=== PATIENT | female | born 1965 | race Caucasian/White ===

== ENCOUNTER 2019-04-27 21:22 | Inpatient (IN) | payer MEDICAID ==
[~2019-04-27] VITALS: Ht 167.6 cm; Wt 108.4 kg
[2019-04-27 21:26] VITALS: BP 140/70
--- NOTE | 2019-04-27 21:34 | NUR ---
PT TAKEN TO BED 6
--- NOTE | 2019-04-27 21:34 | NUR ---
53 Y/O FEMALE EPIGASTRIC PAIN RADIATING TO BACK SINCE TODAY. PT TOOK MAALOX AT 7PM. PT TOOK NORCO 7:30PM AND OXYCODONE 8:15PM, WITHOUT RELIEF. PT HAD 3 EMESIS EPISODES. PT ALSO FEELING DIZZY. ABDOMEN SOFT AND FLAT; TENDERNESS UPON PALPATION. 8/10 PAIN ACUTE PAIN NOTED. ERMD MADE AWARE OF STATUS. SIDE RAILSX1. VSS. ALLERGIES: NKA MED HX: PREDIABETIC AND HTN RX:DENIES
[2019-04-27] MEDS ORDERED: NACL 0.9% 500 ML IV ONE (21:47)
[2019-04-27] MEDS ORDERED: KETOROLAC 30 MG/ML VIAL IVP ONE (21:50)
[2019-04-27] MEDS ORDERED: ONDANSETRON 4 MG/2 ML VIAL IVP ONE (21:50)
[2019-04-27 22:19] LABS: BASOPHILS % (AUTO) 0.6 % (0.0-2.0); EOSINOPHILS # (AUTO) 0.1 K/uL (0-0.4); EOSINOPHILS % (AUTO) 1.8 % (0.0-4.0); HEMATOCRIT 38.2 % (36-48); HEMOGLOBIN 12.6 g/dL (12.0-16.0); LYMPHOCYTES # (AUTO) 3.1 K/uL (2.5-16.5); LYMPHOCYTES % (AUTO) 44.6 % (20.5-51.1); MEAN CORPUSCULAR HEMOGLOBIN 30 pg (27-31); MEAN CORPUSCULAR HGB CONC 33 g/dL (33-37); MEAN CORPUSCULAR VOLUME 92.3 fL (80-94); MONOCYTES # (AUTO) 0.5 K/uL (0.8-1.0); MONOCYTES % (AUTO) 7.3 % (1.7-9.3); NEUTROPHILS # (AUTO) 3.2 K/uL (1.8-7.7); NEUTROPHILS % (AUTO) 45.7 % (42.2-75.2); PLATELET COUNT (AUTO) 182 K/uL (140-450); RED BLOOD CELL COUNT(AUTO) 4.14 MIL/uL (4.20-5.40); RED CELL DISTRIBUTION WIDTH 12.9 % (11.6-13.7); WHITE BLOOD COUNT (AUTO) 6.9 K/uL (4.8-10.8)
[2019-04-27 22:30] LABS: ANION GAP 13.8 (8-16); CARBON DIOXIDE 26.9 mmol/L (21-32); CREATININE 0.8 mg/dL (0.6-1.3); POTASSIUM 3.7 mmol/L (3.5-5.1)
[2019-04-27 22:36] LABS: ALBUMIN 3.5 g/dL (3.4-5.0); TOTAL BILIRUBIN 0.7 mg/dL (0.0-1.0)
--- NOTE | 2019-04-27 22:36 | NUR ---
ULTRASOUND AT BEDSIDE.
--- NOTE | 2019-04-27 22:37 | NUR ---
Dr. Nguyen examining patient.
--- NOTE | 2019-04-27 22:47 | NUR ---
Ultrasound at bedside.
[2019-04-28] MEDS ORDERED: DOCUSATE SODIUM 100 MG GELCAP PO PRN (00:20)
[2019-04-28] MEDS ORDERED: ONDANSETRON 4 MG/2 ML VIAL IM/IVP PRN (00:20)
[2019-04-28] MEDS ORDERED: ZOLPIDEM 5 MG TAB PO PRN (00:20)
[2019-04-28] MEDS ORDERED: ACETAMINOPHEN 325 MG TAB PO PRN (00:20)
[2019-04-28] MEDS ORDERED: HYDROcodone/APAP 5/325 MG 1 TAB TAB PO PRN (00:20)
[2019-04-28] MEDS ORDERED: LORazepam 2 MG/ML VIAL IM/IVP PRN (00:20)
[2019-04-28 00:50] VITALS: BP 152/84
--- NOTE | 2019-04-28 00:50 | NUR ---
Patient will be admitted to care of DR. NIETO . Admited to Med/Surg. Will go to room 120 B. Belongings list completed. Report to TISHA PARNELL .
--- NOTE | 2019-04-28 00:50 | NUR ---
ADMITTED A 53 YEAR OLD FEMALE FROM ER VIA WHEELCHAIR ACCOMPANIED BY FAMILY. OCCITAN SPEAKING. ALERT AND ORIENTED X4. NO APPARENT DISTRESS NOTED. AMBULATORY TO THE BATHROOM. DENIES PAIN NOR DISCOMFORT. ORIENTED TO HOSPITAL ENVIRONMENT, ROUTINE AND EQUIPMENT. CALL LIGHT WITHIN REACH. BED ON LOW POSITION. SKIN IS INTACT. WITH PIV ON LEFT AC 20G. SALINE LOCKED. WILL CONTINUE TO MONITOR.
--- NOTE | 2019-04-28 02:45 | NUR ---
PATIENT AWAKE IN BED, RESTING. DENIES PAIN NOR DISCOMFORT. WILL CONTINUE TO MONITOR.
[2019-04-28] MEDS ORDERED: DEXTROSE 50% 50 ML SYR IVP PRN (03:00)
[2019-04-28] MEDS ORDERED: INSULIN LISPRO SLIDING SCALE 100 UNITS/ML VIAL SUBQ PRN (03:00)
[2019-04-28] MEDS ORDERED: DEXT 5% / NACL 0.9% 500 ML IV SCH (03:30)
--- NOTE | 2019-04-28 04:16 | NUR ---
ADMITTED A 53 YEAR OLD FEMALE FROM ER VIA WHEELCHAIR ACCOMPANIED BY FAMILY. LUXEMBOURGISH SPEAKING. ALERT AND ORIENTED X4. NO APPARENT DISTRESS NOTED. AMBULATORY TO THE BATHROOM. DENIES PAIN NOR DISCOMFORT. ORIENTED TO HOSPITAL ENVIRONMENT, ROUTINE AND EQUIPMENT. CALL LIGHT WITHIN REACH. BED ON LOW POSITION. SKIN IS INTACT. WITH PIV ON LEFT AC 20G. SALINE LOCKED. WILL CONTINUE TO MONITOR. Addendum: 04/28/19 at 0420 by Johnnie Cartagena RN DISREGARD NOTE. WRONG TIME.
--- NOTE | 2019-04-28 04:20 | NUR ---
PATIENT ASLEEP IN BED. VISIBLE CHEST RISE AND FALL NOTED. WILL CONTINUE TO MONITOR.
[2019-04-28] MEDS: BLOOD GLUCOSE MONITORING 1 DEV DEV FS SCH ×4 (06:05→21:44)
[2019-04-28] MEDS: FAMOTIDINE 20 MG/2 ML VIAL IV SCH (06:07)
--- NOTE | 2019-04-28 06:15 | NUR ---
PATIENT AWAKE IN BED. NO APPARENT DISTRESS NOTED. WILL CONTINUE TO MONITOR.
--- NOTE | 2019-04-28 07:05 | NUR ---
ENDORSED TO NEXT SHIFT NURSE IN STABLE CONDITION FOR CONTINUITY OF CARE.
--- NOTE | 2019-04-28 07:07 | NUR ---
RECEIVED BEDSIDE REPORT FROM SPEECH WRITER NURSE FOR CONTINUITY OF CARE. PATIENT AWAKE AND TALKING TO DAUGHTER AT BEDSIDE. PATIENT IS AAOX4, SPEAKS CUBAN AND UNDERSTAND MINIMAL IRANIAN. PATIENT STATED HER PAIN IS WITHIN HER TOLERABLE LIMIT AT THIS TIME. DENIED NAUSEA AND VOMITING. NO SIGNS OF DISTRESS NOTED. IV ON LAC 20G, CLEAN AND DRY, INFUSING PER MD ORDER. PATIENT IS CONTINENT AND ABLE TO AMBULATE. DISCUSSED PLAN OF CARE WITH PATIENT AND PATIENT'S DAUGHTER MALIA, BOTH VERBALIZED UNDERSTANDING. NPO ENFORCED AND SIGN POSTED BY DOOR. PATIENT AND MALIA ARE BOTH AWARE OF NPO AND EDU PROVIDED. SAFETY MEASURES IN PLACE. BED IN LOW POSITION AND CALL LIGHT WITHIN REACH. INSTRUCTED PATIENT TO USE THE CALL LIGHT FOR ANY ASSISTANCE AND PATIENT WAS AWARE.
[2019-04-28 07:31] LABS: BASOPHILS % (AUTO) 0.6 % (0.0-2.0); EOSINOPHILS # (AUTO) 0.1 K/uL (0-0.4); EOSINOPHILS % (AUTO) 1.3 % (0.0-4.0); HEMATOCRIT 39.7 % (36-48); HEMOGLOBIN 13.1 g/dL (12.0-16.0); LYMPHOCYTES # (AUTO) 2.7 K/uL (2.5-16.5); LYMPHOCYTES % (AUTO) 43.7 % (20.5-51.1); MEAN CORPUSCULAR HEMOGLOBIN 30 pg (27-31); MEAN CORPUSCULAR HGB CONC 33 g/dL (33-37); MEAN CORPUSCULAR VOLUME 92.2 fL (80-94); MONOCYTES # (AUTO) 0.5 K/uL (0.8-1.0); MONOCYTES % (AUTO) 8.3 % (1.7-9.3); NEUTROPHILS # (AUTO) 2.8 K/uL (1.8-7.7); NEUTROPHILS % (AUTO) 46.1 % (42.2-75.2); PLATELET COUNT (AUTO) 198 K/uL (140-450); RED BLOOD CELL COUNT(AUTO) 4.31 MIL/uL (4.20-5.40); RED CELL DISTRIBUTION WIDTH 12.9 % (11.6-13.7); WHITE BLOOD COUNT (AUTO) 6.2 K/uL (4.8-10.8)
[2019-04-28] MEDS: MORPHINE SULFATE 2 MG/ML SYR IVP PRN ×2 (07:52→23:06)
--- NOTE | 2019-04-28 07:52 | NUR ---
PATIENT COMPLAINED SHE HAS 9/10 ABDOMINAL PAIN, IT FEELS SHARP, ARCHING, AND SHE FEELS RESTLESS. REPOSITIONED PATIENT AND PATIENT STATED "STILL HURT." MEDICATED WITH PRN PAIN MED MORPHINE PER MD ORDER, PATIENT TOLERATED WELL. MED EDU PROVIDED TO PATIENT AND DAUGHTER MALIA AT BEDSIDE. NO SIGNS OF DISTRESS NOTED. SAFETY MEASURES IN PLACE. BED IN LOW POSITION AND CALL LIGHT WITHIN REACH. INSTRUCTED PATIENT TO USE THE CALL LIGHT FOR ANY ASSISTANCE AND PATIENT WAS AWARE.
[2019-04-28 08:00] VITALS: BP 146/79
[2019-04-28 08:01] LABS: CARBON DIOXIDE 29.9 mmol/L (21-32); CREATININE 0.8 mg/dL (0.6-1.3); POTASSIUM 3.9 mmol/L (3.5-5.1)
[2019-04-28 08:06] LABS: PROTHROMBIN TIME 9.2 secs (10.8-13.4)
[2019-04-28 08:17] LABS: PHOSPHORUS 3.7 mg/dL (2.5-4.9); THYROID STIMULATING HORMONE 3.12 uIU/mL (0.34-3.74)
--- NOTE | 2019-04-28 09:02 | NUR ---
PATIENT HAS BEEN SCREENED AND CATEGORIZED LOW NUTRITION RISK. PATIENT WILL BE SEEN WITHIN 7 DAYS OF ADMISSION. 05/04/[address]
[2019-04-28] MEDS: LISINOPRIL 20 MG TAB PO SCH (09:58)
--- NOTE | 2019-04-28 09:59 | NUR ---
ADMINISTERED MEDICATION PRESCRIBED PER MD. PATIENT TOLERATED WELL. MEDICATION EDUCATION PERFORMED. PATIENT IS ABLE TO VERBALIZE UNDERSTANDING AND TEACH BACK. NO COMPLAINTS OR CONCERNS AT THIS TIME. SAFETY MEASURES: HOB ELEVATED, BED ALARM ACTIVATED, BED IN LOWEST POSITION, CALL LIGHT WITHIN REACH. WILL CONTINUE TO MONITOR.
[2019-04-28] MEDS: DEXT 5% /NACL 0.9% 1,000 ML IV SCH (11:30)
--- NOTE | 2019-04-28 11:40 | NUR ---
PATIENT AWAKE AND RESTING ON BED. SISTER IS BY BEDSIDE. NO SIGNS OF DISTRESS NOTED. SAFETY MEASURES IN PLACE. BED IN LOW POSITION AND CALL LIGHT WITHIN REACH.
--- NOTE | 2019-04-28 12:40 | NUR ---
DR LEWIS IS ASSESSING AND TALKING TO PATIENT AT BEDSIDE. NO SIGNS OF DISTRESS NOTED. SAFETY MEASURES IN PLACE.
--- NOTE | 2019-04-28 12:57 | NUR ---
PER DR LEWIS, HE WILL PERFORM LAP CHOLECYSTECTOMY POSSIBLE OPEN FOR PATIENT, CONSENT NEEDED. DR LEWIS EXPLAINED TO PATIENT WITH POSSIBLE RISK AND BENEFITS. USED [employer] QUALITY CONTROL MANAGER SERVICE TO OBTAIN CONSENT, [facility] QUALITY CONTROL MANAGER #[id number]. PATIENT WAS AWARE THAT SHE IS GONG TO DO LAP BOB TOMORROW. PATIENT AWAKE AND TALKING TO VISITOR AT BEDSIDE.
--- NOTE | 2019-04-28 13:37 | NUR ---
PATIENT IS RESTING IN BED WITH FAMILY AT BEDSIDE. NO CONCERNS OR COMPLAINTS AT THIS TIME. ABLE TO MAKE NEEDS KNOWN. RESPIRATIONS EVEN AND UNLABORED WITH NO SOB OR RESPIRATORY DISTRESS. SKIN WARM AND DRY TO TOUCH. SAFETY MEASURES: HOB ELEVATED, BED IN LOWEST POSITION, AND CALL LIGHT WITHIN REACH. WILL CONTINUE TO MONITOR
--- NOTE | 2019-04-28 14:27 | NUR ---
DC [age] YRS OLD FEMALE ADMITTED FROM HOME WITH A DX OF CHOLECYSTITIS. PT HAS A HX OF ANXIETY ,DEPRESSION , PRE DM, OBESITY AND HTN . ULTRASOUND OF GALLBLADDER SHOWS GALLSTONES . DR ARORA CONSULT , HIDA SCAN ORDERED.ADMINISTER IVF , CONTINUE HOME MEDS .DC PLAN PER SURGEON CM TO FOLLOW Addendum: 04/30/19 at 1133 by Daphney Menjivar CM POST OP DAY 1 S/P LAPAROSCOPIC CHOLECYSTECTOMY 04/[address] ARORA. WITH ON AND OFF PAIN, MORPHINE PRN GIVEN. FOR POSSIBLE DC TO HOME TODAY WITH NO NEEDS.
--- NOTE | 2019-04-28 15:33 | NUR ---
PATIENT LYING IN BED WATCHING TV. ABLE TO MAKE NEEDS KNOWN. NO COMPLAINTS AT THIS TIME. RESPIRATIONS EVEN AND UNLABORED. SAFETY MEASURES IN PLACE. WILL CONTINUE TO MONITOR
[2019-04-28 16:00] VITALS: BP 137/64
--- NOTE | 2019-04-28 16:16 | NUR ---
PATIENT IN BED WITH FAMILY AT BEDSIDE. ABLE TO MAKE NEEDS KNOWN. NO COMPLAINTS OR CONCERNS AT THIS TIME. RESPIRATIONS EVEN AND UNLABORED WITH NO SOB OR RESPIRATORY DISTRESS. HOB ELEVATED, BED IN LOWEST POSITION, CALL LIGHT WITHIN REACH. WILL CONTINUE TO MONITOR.
--- NOTE | 2019-04-28 17:49 | NUR ---
PATIENT AWAKE AND TALKING TO VISITOR AT BEDSIDE. DENIED PAIN, NAUSEA AND DIZZINESS. NO SIGNS OF DISTRESS NOTED. SAFETY MEASURES IN PLACE. BED IN LOW POSITION AND CALL LIGHT WITHIN REACH. INSTRUCTED PATIENT TO USE THE CALL LIGHT FOR ANY ASSISTANCE AND PATIENT WAS AWARE.
--- NOTE | 2019-04-28 18:40 | NUR ---
TRANSFERRED PATIENT TO ROOM 106A, PATIENT TOOK ALL HER BELONGINGS. PATIENT IS AWAKE AND TALKING TO FAMILY MEMBERS BY BEDSIDE. NO SIGNS OF DISTRESS NOTED. SAFETY MEASURES IN PLACE.
--- NOTE | 2019-04-28 18:53 | NUR ---
RECEIVED A CALL FROM [facility]. PER ESTEFANY, THEY DIDNT SEE THE HIDA SCAN ORDER UNTIL NOW. HE WANTS TO VERIFY IF PATIENT IS NPO. INFORMED ESTEFANY THAT PATIENT HAS BEEN ON NPO THE ENTIRE DAY AND SHE HASN'T GETTING ANY OPIOIDS IN THE LAST COUPLE HOURS, THE LAST PAIN MED WAS GIVEN AT 0752. PER ESTEFANY, HE WILL CALL THE IMAGING COMPANY AND FIND OUT IF THEY ARE ABLE TO COME DURING NIGHT. REQUESTED [facility] TO CALL BACK REGARDLESS. [facility]EF[facility] WAS AWARE. WILL ENDORSE TO ONCOMING SHIFT NURSE.
--- NOTE | 2019-04-28 19:04 | NUR ---
ENDORSED TO FERMENTOLOGIST AT BEDISDE. PATIENT LYING IN BED WITH FAMILY AT BEDSIDE. PT IS ALERT AND WAKE, ABLE TO MAKE NEEDS KNOWN. RESPIRATIONS EVEN AND UNLABORED WITH NO SOB OR RESPIRATORY DISTRESS. PATIENT IS IN STABLE CONDITION
--- NOTE | 2019-04-28 19:30 | NUR ---
Received endorsement from AM shift RN; patient A/Ox4, able to make needs known, Guatemalan speaking only, ambulatory. Son and daughter at bedside; introduced self, updated board. No SOB or distress noted, on room air. IV site noted on left antecubital, 20 gauge, running IVF at 70mL/hr. Bed in the lowest position, call light within reach. Initial assessment done. Will continue to monitor.
--- NOTE | 2019-04-28 19:54 | NUR ---
Eddie from [facility] called to notify HIDA scan will be done between 2029 and 2099.
--- NOTE | 2019-04-28 22:15 | NUR ---
HIDA scan completed at this time.
[2019-04-29] VITALS: BP 112/56
--- NOTE | 2019-04-29 00:05 | NUR ---
Vitals taken, no distress noted. Patient asleep, eyes closed, visible chest rise and fall noted.
[2019-04-29] MEDS: DEXT 5% /NACL 0.9% 1,000 ML IV SCH ×2 (02:04→17:18)
--- NOTE | 2019-04-29 02:06 | NUR ---
Rounds done; no SOB or distress noted.
--- NOTE | 2019-04-29 04:10 | NUR ---
Checks made; no SOB or distress noted. PAtient resting comfortably, visible chest rise and fall noted.
[2019-04-29] MEDS: BLOOD GLUCOSE MONITORING 1 DEV DEV FS SCH ×4 (05:32→20:12)
[2019-04-29] MEDS: FAMOTIDINE 20 MG/2 ML VIAL IV SCH (05:49)
--- NOTE | 2019-04-29 06:05 | NUR ---
Vitals stable, due meds given. Will endorse to AM shift RN for continuity of care.
[2019-04-29 06:24] LABS: APPEARANCE,URINE HAZY (CLEAR); BILIRUBIN,URINE NEGATIVE (NEGATIVE); BLOOD, URINE TRACE-L (NEGATIVE); COLOR,URINE YELLOW (YELLOW); LEUKOCYTE ESTERASE ,URINE 1+ (NEGATIVE); NITRITE, URINE NEGATIVE (NEGATIVE); UGLUCOSE NEGATIVE (NEGATIVE)
[2019-04-29 06:37] LABS: RBC,URINE NONE SEEN /HPF (0-5); WBC,URINE 0-5 /HPF (0-5)
--- NOTE | 2019-04-29 07:02 | NUR ---
RECEIVED BEDSIDE REPORT FROM NIGHTSHIFT NURSE. PATIENT LYING BED WITH FAMILY AT BEDSIDE, ABLE TO MAKE NEEDS KNOWN. NO COMPLAINTS OR CONCERNS. RESPIRATONS EVEN AND UNLABORED WITH NO SOB OR RESPIRATORY DISTRESS. SKIN WARM AND DRY TO TOUCH. SAFETY MEASURES: HOB ELEVATED, BED IN LOWEST POSITION, AND CALL LIGHT WITHIN REACH. WILL CONTINUE TO MONITOR
[2019-04-29] MEDS ORDERED: BUPIVACAINE-MPF 0.25% 30 ML VIAL INJ ONE (07:14)
[2019-04-29] MEDS ORDERED: LIDOCAINE 1% 500 MG/50 ML VIAL ONE (07:14)
[2019-04-29] MEDS ORDERED: DESFLURANE 240 ML BTL INH ONE (07:27)
[2019-04-29] MEDS ORDERED: LIDOCAINE 2% 100 MG/5 ML SYR IVP ONE (07:27)
[2019-04-29] MEDS ORDERED: DEXAMETHASONE 4 MG/ML VIAL ONE (07:27)
[2019-04-29] MEDS ORDERED: KETOROLAC 30 MG/ML VIAL ONE (07:27)
[2019-04-29] MEDS ORDERED: ROCURONIUM 50 MG/5 ML VIAL IV ONE (07:27)
[2019-04-29] MEDS ORDERED: PROPOFOL 200 MG/20 ML VIAL IV ONE (07:27)
[2019-04-29] MEDS ORDERED: SUCCINYLCHOLINE CHLORIDE 200 MG/10 ML VIAL IVP ONE (07:27)
--- NOTE | 2019-04-29 07:32 | NUR ---
PATIENT IS OFF UNIT TO OR DEPT FOR PROCEDURE ACCOMPANIED WITH OR NURSES. PATIENT IS IN STABLE CONDITION.
[2019-04-29] MEDS ORDERED: fentaNYL 0.05 MG/ML VIAL ONE (07:37)
[2019-04-29] MEDS ORDERED: MIDAZOLAM 2 MG/2 ML VIAL ONE (07:37)
[2019-04-29 08:00] VITALS: BP 141/60
[2019-04-29] MEDS ORDERED: ONDANSETRON 4 MG/2 ML VIAL IVP PRN (08:00)
[2019-04-29] MEDS ORDERED: HYDROmorphone 1 MG/ML AMP IVP PRN ×2 (08:00→09:10)
[2019-04-29 08:01] LABS: BASOPHILS % (AUTO) 0.7 % (0.0-2.0); EOSINOPHILS # (AUTO) 0.1 K/uL (0-0.4); EOSINOPHILS % (AUTO) 2.1 % (0.0-4.0); HEMATOCRIT 39.1 % (36-48); HEMOGLOBIN 12.7 g/dL (12.0-16.0); LYMPHOCYTES # (AUTO) 2.3 K/uL (2.5-16.5); LYMPHOCYTES % (AUTO) 39.7 % (20.5-51.1); MEAN CORPUSCULAR HEMOGLOBIN 30 pg (27-31); MEAN CORPUSCULAR HGB CONC 33 g/dL (33-37); MEAN CORPUSCULAR VOLUME 93.5 fL (80-94); MONOCYTES # (AUTO) 0.5 K/uL (0.8-1.0); MONOCYTES % (AUTO) 8.8 % (1.7-9.3); NEUTROPHILS # (AUTO) 2.8 K/uL (1.8-7.7); NEUTROPHILS % (AUTO) 48.7 % (42.2-75.2); PLATELET COUNT (AUTO) 176 K/uL (140-450); RED BLOOD CELL COUNT(AUTO) 4.18 MIL/uL (4.20-5.40); RED CELL DISTRIBUTION WIDTH 13.2 % (11.6-13.7); WHITE BLOOD COUNT (AUTO) 5.7 K/uL (4.8-10.8)
[2019-04-29 08:13] LABS: ANION GAP 13.5 (8-16); CARBON DIOXIDE 28.4 mmol/L (21-32); CREATININE 0.8 mg/dL (0.6-1.3); POTASSIUM 3.9 mmol/L (3.5-5.1)
[2019-04-29 08:57] LABS: T4 (THYROXINE) 8.4 ug/dL (4.5-12.0)
[2019-04-29] MEDS: LISINOPRIL 20 MG TAB PO SCH (09:00)
[2019-04-29 09:05] LABS: BARBITURATE, URINE NEG. ng/ml (NEG <=200); BENZODIAZEPINE, URINE NEG. ng/mL (NEG <=200); CANNABINOID, URINE NEG. ng/mL (NEG <=50); COCAINE, URINE NEG. ng/mL (NEG <=300); OPIATE, URINE NEG. ng/mL (NEG <=2000); PHENCYCLIDINE SCREEN,URINE NEG. ng/mL (NEG <=25)
[2019-04-29] MEDS ORDERED: MORPHINE SULFATE 4 MG/ML SYR IV PRN (09:10)
[2019-04-29] MEDS ORDERED: ONDANSETRON 4 MG/2 ML VIAL IM/IVP PRN (09:10)
[2019-04-29] MEDS ORDERED: HYDROcodone/APAP 5/325 MG 1 TAB TAB PO PRN (09:10)
[2019-04-29] MEDS ORDERED: ACETAMINOPHEN 325 MG TAB PO PRN (09:10)
[2019-04-29 09:22] LABS: PHOSPHORUS 3.3 mg/dL (2.5-4.9)
--- NOTE | 2019-04-29 10:10 | NUR ---
PATIENT CAME BACK ON UNIT ACCOMPANIED WITH OR NURSE ELMER. RECEIVED BEDSIDE REPORT AND ASSESSED PATIENT SURGICAL WOUND SITES, INTACT AND COVERED WITH CLEAR DERMAL SEE. PATIENT IS AWAKE AND RESTING ON BED AT THIS TIME. PATIENT SAID "PAIN OK." VITAL SIGNS TAKEN. BED IN LOW POSITION AND CALL LIGHT WITHIN REACH.
[2019-04-29] MEDS: MORPHINE SULFATE 2 MG/ML SYR IVP PRN (11:18)
--- NOTE | 2019-04-29 11:18 | NUR ---
PATIENT CALLED AND MENTIONED THAT SHE WAS HAVING PAIN 7 OUT OF 10. ADMINISTERED PAIN MEDICATION PRESCRIBED PER MD ORDER. PATIENT TOLERATED WELL. EDUCATED PATIENT ON MEDICATION REGIME. PATIENT UNDERSTOOD AND VERBALIZED UNDERSTANDING.
--- NOTE | 2019-04-29 12:20 | NUR ---
PATIENT IN BED ASLEEP WITH FAMILY AT BEDSIDE. RESPONSIVE TO VERBAL AND TACTILE STIMULI. ABLE TO MAKE NEEDS KNOWN. RESPIRATIONS EVEN AND UNLABORED WITH NO SOB OR RESPIRATORY DISTRESS. SAFETY MEASURES IN PLACE: HOB ELEVATED, BED IN LOWEST POSITION, AND CALL LIGHT WITHIN REACH. WILL CONTINUE TO MONITOR
--- NOTE | 2019-04-29 13:14 | NUR ---
PATIENT RESTING IN BED WITH FAMILY AT BEDSIDE. ABLE TO MAKE NEEDS KNOWN. NO COMPLAINTS OR CONCERNS AT THIS TIME. RESPIRATIONS EVEN AND UNLABORED WITH NO SOB OR RESPIRATORY DISTRESS. SKIN WARM AND DRY TO TOUCH. SAFETY MEASURES: HOB ELEVATED, BED IN LOWEST POSITION, AND CALL LIGHT WITHIN REACH. WILL CONTINUE TO MONITOR.
--- NOTE | 2019-04-29 14:15 | NUR ---
CONTRACT ADMINISTRATION COORDINATOR AND DAUGHTER MALIA ASSISTED PATIENT AMBULATE TO THE BATHROOM. PATIENT STATED "IT HURTS A LITTLE WHEN WALK, BUT NO DIZZINESS." DAUGHTER IS BY BEDSIDE. NO SIGNS OF DISTRESS NOTED. SAFETY MEASURES IN PLACE. BED IN LOW POSITION AND CALL LIGHT WITHIN REACH.
--- NOTE | 2019-04-29 14:53 | NUR ---
DR OSMAN IS TALKING TO PATIENT AND PATIENT'S DAUGHTER AT BEDSIDE. NO SIGNS OF DISTRESS NOTED. SAFETY MEASURES IN PLACE.
--- NOTE | 2019-04-29 15:08 | NUR ---
PATIENT CALLED AND COMPLAINED OF 6/10 PAIN. PRN PAIN MEDICATION GIVEN PRESCRIBED PER MD ORDER. EDUCATED PATIENT ON MEDICATION REGIMEN. PT TOLERATED AND VERBALIZED UNDERSTANDING. SAFETY MEASURES IN PLACE
[2019-04-29 16:00] VITALS: BP 137/72
[2019-04-29] MEDS ORDERED: ALBUTEROL SULFATE/IPRATROPIU 3 ML SOL IH PRN (16:00)
--- NOTE | 2019-04-29 16:29 | NUR ---
DR PULLIAM IS TALKING TO PATIENT AND DAUGHTER MALIA AT BEDSIDE. NO SIGNS OF DISTRESS NOTED. SAFETY MEASURES IN PLACE.
[2019-04-29] MEDS ORDERED: PANTOPRAZOLE 40 MG INJ VIAL IVP SCH (16:59)
[2019-04-29] MEDS ORDERED: diphenhydrAMINE 50 MG/ML VIAL IVP SCH (17:00)
--- NOTE | 2019-04-29 17:19 | NUR ---
ADMINISTERED MEDS PER MD ORDER, MEDS ED PROVIDED TO PATIENT AND PATIENT VERBALIZED UNDERSTANDING. PATIENT IS AWAKE AND RESTING ON BED AT THIS TIME. NO SIGNS OF DISTRESS NOTED. SAFETY MEASURES IN PLACE. BED IN LOW POSITION AND CALL LIGHT WITHIN REACH. INSTRUCTED PATIENT TO USE THE CALL LIGHT FOR ANY ASSISTANCE AND PATIENT WAS AWARE.
--- NOTE | 2019-04-29 18:02 | NUR ---
ADMINISTERED MED VIA IVPB PER MD ORDER, MED ED PROVIDED TO PATIENT AND PATIENT VERBALIZED UNDERSTANDING. PATIENT AWAKE AND RESTING ON BED AT THIS TIME. NO SIGNS OF DISTRESS NOTED. SAFETY MEASURES IN PLACE. BED IN LOW POSITION AND CALL LIGHT WITHIN REACH. INSTRUCTED PATIENT TO USE THE CALL LIGHT FOR ANY ASSISTANCE AND PATIENT WAS AWARE.
--- NOTE | 2019-04-29 18:32 | NUR ---
PATIENT AWAKE AND TALKING TO FAMILY MEMBERS AT BEDSIDE. NO SIGNS OF DISTRESS NOTED. SAFETY MEASURES IN PLACE. BED IN LOW POSITION AND CALL LIGHT WITHIN REACH.
--- NOTE | 2019-04-29 19:14 | NUR ---
ENDORSED PATIENT AT BEDSIDE TO ECO INDUSTRIAL DEVELOPMENT CONSULTANT NURSE FOR CONTINUITY OF CARE. PATIENT AWAKE AND TALKING TO FAMILY MEMBERS BY BEDSIDE. NO SIGNS OF DISTRESS NOTED. PATIENT IS IN STABLE CONDITION.
--- NOTE | 2019-04-29 19:15 | NUR ---
RECEIVED BEDSIDE REPORT FROM DAY RN. PT IS AAOX4 MAINLY WOLOF SPEAKING. FAMILY AT BEDSIDE. PT ON ROOM AIR. RESPIRATIONS ARE EQUAL AND UNLABORED. LUNG SOUNDS ARE CLEAR. PT IS S/P AMBAR ROJAS TODAY WITH DR ARORA AND JOSHUA PT WITH 4 INCISIONS HOME HEALTH CAREGIVER. HAS ABD BINDER ON D/T COUGH. IV ON LAC 20G IVF PER ORDERS. POC DISCUSSED WITH PT AND FAMILY. SAFETY MEASURES ARE IN PLACE. CALL LIGHT IS WITHIN REACH. WILL CONTINUE TO MONITOR.
--- NOTE | 2019-04-29 21:02 | NUR ---
BLOOD SUGAR 146 NO COVERAGE NEEDED. SURGICAL INCISIONS ARE INTACT AND DRY PEDRO. PT DENIES PAIN THIS TIME. ALL NEEDS MET. GAVE ICE CHIPS PER REQUEST. CALL LIGHT IS WITHIN REACH.
--- NOTE | 2019-04-29 21:10 | NUR ---
RECEIVED PATIENT ON ROM AIR, PULSE OX SAT 96%. PT DENIES SOB. PRN HHN NOT INDICATED AT THIS TIME. EDUCATED PATIENT ON INCENTIVE SPIROMETER EQUIPMENT. PATIENT PERFORMED RETURN DEMONSTRATION WITH [employer]IR E[employer]ORT. NO RESPIRATORY DISTRESS NOTED. WILL CONTINUE TO MONITOR.
[2019-04-29] MEDS ORDERED: diphenhydrAMINE 50 MG/ML VIAL IVP PRN (22:40)
[2019-04-30] VITALS: BP 115/58
--- NOTE | 2019-04-30 00:03 | NUR ---
VITAL SIGNS ARE WITHIN NORMAL LIMITS. ALL NEEDS MET AT THIS TIME. CALL LIGHT IS WITHIN REACH.
--- NOTE | 2019-04-30 01:14 | NUR ---
PATIENT IS RESTING COMFORTABLY IN BED. 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 ALL NEEDS MET AT THIS TIME.
--- NOTE | 2019-04-30 02:54 | NUR ---
PATIENT COMPLAINED OF PAIN ON IV SITE. IV D/C CATHETER IS INTACT. NEW IV ON LEFT FA 22G ON 1ST ATTEMPT. PT TOLERATED WELL. ALL NEEDS MET.
[2019-04-30] MEDS: DEXT 5% /NACL 0.9% 1,000 ML IV SCH (04:23)
[2019-04-30] MEDS: MORPHINE SULFATE 2 MG/ML SYR IVP PRN ×2 (04:42→12:43)
--- NOTE | 2019-04-30 04:42 | NUR ---
ADMINISTERED PRN MORPHINE FOR ABD PAIN 01/04. PATIENT TOLERATED WELL. ALL NEEDS MET AT THIS TIME. CALL LIGHT IS WITHIN REACH. WILL CONTINUE TO MONITOR.
[2019-04-30] MEDS: BLOOD GLUCOSE MONITORING 1 DEV DEV FS SCH ×3 (05:46→16:30)
[2019-04-30 06:16] LABS: BASOPHILS % (AUTO) 0.3 % (0.0-2.0); EOSINOPHILS % (AUTO) 0.1 % (0.0-4.0); HEMATOCRIT 36.8 % (36-48); HEMOGLOBIN 11.9 g/dL (12.0-16.0); LYMPHOCYTES # (AUTO) 2.3 K/uL (2.5-16.5); LYMPHOCYTES % (AUTO) 29.2 % (20.5-51.1); MEAN CORPUSCULAR HEMOGLOBIN 30 pg (27-31); MEAN CORPUSCULAR HGB CONC 33 g/dL (33-37); MEAN CORPUSCULAR VOLUME 93.2 fL (80-94); MONOCYTES # (AUTO) 0.6 K/uL (0.8-1.0); MONOCYTES % (AUTO) 6.9 % (1.7-9.3); NEUTROPHILS # (AUTO) 5.1 K/uL (1.8-7.7); NEUTROPHILS % (AUTO) 63.5 % (42.2-75.2); PLATELET COUNT (AUTO) 198 K/uL (140-450); RED BLOOD CELL COUNT(AUTO) 3.94 MIL/uL (4.20-5.40)
[2019-04-30 06:20] LABS: MAGNESIUM 1.8 mg/dL (1.8-2.4); PHOSPHORUS 3.3 mg/dL (2.5-4.9)
[2019-04-30 06:24] LABS: ANION GAP 13.3 (8-16); CARBON DIOXIDE 25.4 mmol/L (21-32); CREATININE 0.8 mg/dL (0.6-1.3); POTASSIUM 3.7 mmol/L (3.5-5.1)
--- NOTE | 2019-04-30 07:30 | NUR ---
GAVE BEDSIDE REPORT TO DAY RN. PT ENDORSED IN STABLE CONDITION.
--- NOTE | 2019-04-30 07:41 | NUR ---
RECEIVED BEDSIDE REPORT FROM FENCE ERECTOR RN. PT IS AAOX4, URDU SPEAKING. PT ON ROOM AIR. RESPIRATIONS ARE EQUAL AND UNLABORED. LUNG SOUNDS ARE CLEAR. PT IS S/P LAP BOB YESTERDAY WITH DR ARORA AND JOSHUA. PT WITH 4 INCISIONS PEDRO. HAS ABD BINDER ON. IV ON LAC 20G IVF PER ORDERS. POC DISCUSSED WITH PT AND PT VERBALIZED UNDERSTANDING. SAFETY MEASURES ARE IN PLACE. CALL LIGHT IS WITHIN REACH. WILL MONITOR. PT FREQUENTLY.
[2019-04-30 08:00] VITALS: BP 146/76
[2019-04-30] MEDS ORDERED: SIMETHICONE 80 MG TAB.CHEW PO SCH (08:00)
[2019-04-30] MEDS ORDERED: PANTOPRAZOLE 40 MG INJ VIAL IVP SCH (09:00)
[2019-04-30] MEDS: LISINOPRIL 20 MG TAB PO SCH (09:06)
--- NOTE | 2019-04-30 09:24 | NUR ---
ADMINISTERED MORNING MEDS TO PT AND PT TOLERATED WELL. ALL NEEDS CURRENTLY MET. WILL CONTINUE TO ROUND FREQUENTLY ON PT. BED IN LOW POSITION, CALL LIGHT WITHIN REACH.
--- NOTE | 2019-04-30 11:29 | NUR ---
PT RESTING IN BED WATCHING TV. ALL NEEDS MET. WILL CONTINUE TO ROUND FREQUENTLY ON PT. BED IN LOW POSITION, CALL LIGHT WITHIN PLACE.
--- NOTE | 2019-04-30 11:42 | NUR ---
PT SLEEPING. ALL NEEDS MET. WILL CONTINUE TO ROUND FREQUENTLY ON PT.
--- NOTE | 2019-04-30 13:28 | NUR ---
PT RESTING IN BED WATCHING TV. ALL NEEDS MET. WILL CONTINUE TO ROUND FREQUENTLY ON PT. BED IN LOW POSITION, CALL LIGHT WITHIN PLACE.
[2019-04-30] MEDS ORDERED: ACET-9525 PO (13:29)
--- NOTE | 2019-04-30 15:42 | NUR ---
PT SLEEPING. FAMILY AT BEDSIDE. ALL NEEDS MET. WILL CONTINUE TO ROUND FREQUENTLY ON PT
[2019-04-30 16:00] VITALS: BP 137/66
--- NOTE | 2019-04-30 18:50 | NUR ---
PT DISCHARGED HOME FOR SELF CARE. ALL DISCHARGE PAPERWORK SIGNED AND PT VERBALIZED UNDERSTANDING OF TEACHING AND FOLLOWUP APPT INSTRUCTIONS. IV REMOVED WITH TIP INTACT. PT TOOK ALL PERSONAL BELONGINGS HOME. PT LEFT IN STABLE CONDITION WITH FAMILY.
== END 2019-04-30 18:50 | disposition home or self-care (01) | DRG 263 ==
LOC: MED 21:22 → MTU 04-28 00:23
PROVIDERS: ADMIT General Practice; ATTEND General Practice
PROC: 0FT44ZZ Resection of Gallbladder, Percutaneous Endoscopic Approach (ICD-10-PCS; principal; 2019-04-29 07:30)
DX: K80.64 Calculus of gallbladder and bile duct with chronic cholecystitis without obstruction (principal); K76.0 Fatty (change of) liver, not elsewhere classified; E66.9 Obesity, unspecified; N39.0 Urinary tract infection, site not specified; I10 Essential (primary) hypertension; F41.9 Anxiety disorder, unspecified; F32.9 Major depressive disorder, single episode, unspecified; K21.9 Gastro-esophageal reflux disease without esophagitis; R73.03 Prediabetes; E78.1 Pure hyperglyceridemia; Z68.38 Body mass index [BMI] 38.0-38.9, adult; Z71.3 Dietary counseling and surveillance; Z83.3 Family history of diabetes mellitus; Z82.49 Family history of ischemic heart disease and other diseases of the circulatory system; Z87.891 Personal history of nicotine dependence
CPT/HCPCS: 36415; 71045; 76705; 78445; 80048; 80053; 80305; 81001; 82948; 83036; 83690; 83735; 83880; 84100; 84134; 84436; 84443; 84484; 85025; 85610; 85730; 87081; 87086; 88304; 93005; 96361; 96374; 96375; 99285; A9510; C9113; J0330; J0690; J0696; J1100; J1200; J1815; J1885; J2001; J2250; J2270; J2405; J2704; J3010; J3490; J7042; J7060; Q0092

== ENCOUNTER 2023-08-06 17:30 | Emergency (ER) | payer MEDICAID ==
[~2023-08-06] VITALS: Ht 165.1 cm; Wt 108.9 kg
[~2023-08-06 17:30] MED LIST: ACET-9525 PO
[2023-08-06 17:37] VITALS: BP 131/56; PULSE 71; RESP 18; TEMP 98.1; O2SAT 98
[2023-08-06] MEDS: KETOROLAC 30 MG/ML VIAL IM ONE (18:50)
[2023-08-06] MEDS ORDERED: DICL100G32 TP (20:04)
[2023-08-06 20:05] VITALS: BP 119/79; PULSE 81; RESP 18; TEMP 98
[2023-08-06] MEDS ORDERED: IBUP-2213 PO (20:10)
[2023-08-06 20:16] VITALS: O2SAT 98
== END 2023-08-06 20:05 | disposition home or self-care (01) ==
LOC: MED 17:30
DX: S83.91XA Sprain of unspecified site of right knee, initial encounter (principal); M54.50 Low back pain, unspecified; Z79.899 Other long term (current) drug therapy; X50.1XXA Overexertion from prolonged static or awkward postures, initial encounter; Y93.02 Activity, running; Y92.89 Other specified places as the place of occurrence of the external cause; Y99.8 Other external cause status
CPT/HCPCS: 73562; 96372; 99283; J1885